=== PATIENT | female | born 1965 | race Caucasian/White ===

== ENCOUNTER 2020-12-27 11:38 | Outpatient (CLI) | payer OTHER | END 2020-12-27 11:39 | disposition home or self-care (01) | LOC: CSHMAMMO 11:38 | DX: Z12.31 Encounter for screening mammogram for malignant neoplasm of breast (principal); Z80.3 Family history of malignant neoplasm of breast | CPT/HCPCS: 77063; 77067 ==

== ENCOUNTER 2020-12-30 08:13 | Outpatient (CLI) | payer OTHER | END 2020-12-30 08:14 | disposition home or self-care (01) | LOC: CSHULT 08:13 | DX: N92.0 Excessive and frequent menstruation with regular cycle (principal); D25.9 Leiomyoma of uterus, unspecified | CPT/HCPCS: 76856 ==